=== PATIENT | male | born 1970 | race Caucasian/White ===

== ENCOUNTER 2017-07-08 09:38 | Emergency (ER) | payer MEDICAID ==
[2017-07-08 09:43] VITALS: RESP 18
[2017-07-08] MEDS ORDERED: IBUPROFEN 600 MG TAB PO ONE ×2 (10:02→10:28)
--- NOTE | 2017-07-08 10:05 | EDPHY ---
H & P Time Seen by Provider: 07/08/17 09:45 HPI/ROS: CHIEF COMPLAINT: Right ankle, left foot pain HISTORY OF PRESENT ILLNESS: 46-year-old male presents emergency department complaining of right ankle pain and left foot pain. Patient states 3 days ago he jumped up landed on a rock with his left foot. He has had pain and swelling to this foot since., yesterday he was walking and twisted his right ankle. He complains of right lateral ankle pain. Patient after these injuries reports he walked 20 miles and developed blisters on the bottom of his feet which are painful. Patient denies numbness or tingling in his feet, no history of diabetes, no fevers. He denies other complaints. Patient reports a previous injury to this left foot fracturing multiple metatarsals from a skateboard injury 3 years ago. Smoking Status: Current some day smoker Physical Exam: GEN: Awake, alert, oriented, no acute distress RESP: nl resp effort MSK: Right ankle with lateral swelling, tenderness to ATFL and CFL, no Achilles tenderness, no tenderness to base of 5th metatarsal, no proximal fibular tenderness, 2+ pedal pulses, sensation intact to light touch, left foot with tenderness to base of 5th metatarsal, tenderness to lateral foot squeeze, swelling to dorsal part of midfoot. 2+ pedal pulses, sensation intact to light touch is, no ankle tenderness SKIN: Open blister, [id number] to plantar aspect of ball of right foot, no surrounding erythema, no drainage. Right 3rd toe with small open blister to tip of toe. Mild surrounding erythema. Constitutional: Initial Vital Signs Temperature (C) 36.4 C 07/08/17 09:39 Heart Rate 85 07/08/17 09:39 Respiratory Rate 18 07/08/17 09:39 Blood Pressure 126/75 H 07/08/17 09:39 O2 Sat (%) 98 07/08/17 09:39 O2 Delivery Mode Room Air Allergies/Adverse Reactions: No Known Allergies Allergy (Unverified 07/08/17 09:44) Home Medications: Medication Instructions Recorded NK [No Known Home Meds] 07/08/17 MDM/Departure - MDM Imaging Results: Imaging Impressions Ankle X-Ray 07/08/17 09:53 Impression: Fractures of uncertain age, described above. Are there any acute symptoms related to the distal fourth or proximal fifth metatarsals? 2. Right Ankle, Three Views History: Pain, post trauma. Rolled ankle. Findings: No fracture, ankle joint effusion, or malalignment is identified. Soft tissue swelling laterally. The talar dome looks normal. Impression: Lateral ankle sprain. Foot X-Ray 07/08/17 09:53 Impression: Fractures of uncertain age, described above. Are there any acute symptoms related to the distal fourth or proximal fifth metatarsals? 2. Right Ankle, Three Views History: Pain, post trauma. Rolled ankle. Findings: No fracture, ankle joint effusion, or malalignment is identified. Soft tissue swelling laterally. The talar dome looks normal. Impression: Lateral ankle sprain. Imaging: I viewed and interpreted images myself Medications Given: Discontinued Medications Ibuprofen (Motrin) 600 mg PO EDNOW ONE Stop: 07/08/17 10:03 Last Admin: 07/08/17 10:13 Dose: 600 mg Ibuprofen (Motrin) 600 mg PO EDNOW ONE Stop: 07/08/17 10:29 Last Admin: 07/08/17 10:44 Dose: 600 mg - Depart Disposition: Home, Routine, Self-Care Clinical Impression: Right ankle sprain Qualifiers: Encounter type: initial encounter Involved ligament of ankle: other ligament Qualified Code(s): S93.491A - Sprain of other ligament of right ankle, initial encounter Injury of left foot Qualifiers: Encounter type: initial encounter Qualified Code(s): S99.922A - Unspecified injury of left foot, initial encounter Condition: Good Instructions: Ankle Sprain (ED), Foot Sprain (ED) Additional Instructions: Rest, ice, elevate, wear ankle stirrup splint and postop shoe until your follow- up appointment with the orthopedist or technical services manager. Use crutches as needed for ambulation. Take 600 mg of ibuprofen every 8 hours with food for 3-5 days. Return to the emergency department for numbness or tingling to your feet, pain that is not controlled, new symptoms or concerns. Referrals: Obed Rosales MD [Doctor of Podiatric Medicine] - As per Instructions ( podiotrist cast iron drain pipe layer) Cleveland Anderson MD [Medical Doctor] - As per Instructions (orthopedist cast iron drain pipe layer )
[2017-07-08 11:38] VITALS: BP 131/89; PULSE 60; TEMP 97.9; O2SAT 97
== END 2017-07-08 11:39 | disposition home or self-care (01) ==
DX: S93.491A Sprain of other ligament of right ankle, initial encounter (principal); S99.922A Unspecified injury of left foot, initial encounter; X58.XXXA Exposure to other specified factors, initial encounter; Y99.8 Other external cause status; Y93.01 Activity, walking, marching and hiking; F17.200 Nicotine dependence, unspecified, uncomplicated